=== PATIENT | female | born 1945 | race Caucasian/White ===

== ENCOUNTER 2017-06-16 14:39 | Emergency (ER) | payer MEDICARE ==
[~2017-06-16] VITALS: Ht 160 cm; Wt 68.0 kg
[2017-06-16] MEDS ORDERED: ATORVASTATIN CALCIUM 20 MG TAB PO (14:54)
[2017-06-16] MEDS ORDERED: HYDROCHLOROTHIAZIDE 12.5 MG PO (14:54)
--- NOTE | 2017-06-16 15:04 | NUR ---
Patient discharged to home in stable conditon. Written and verbal after care instructions given. Patient verbalizes understanding of instructions.
== END 2017-06-16 15:05 | disposition home or self-care (01) ==
LOC: ER 14:50
DX: T16.1XXA Foreign body in right ear, initial encounter (principal); I10 Essential (primary) hypertension; E78.5 Hyperlipidemia, unspecified; Z90.710 Acquired absence of both cervix and uterus; Z88.8 Allergy status to other drugs, medicaments and biological substances; Z79.899 Other long term (current) drug therapy; X58.XXXA Exposure to other specified factors, initial encounter; Y93.89 Activity, other specified; Y92.89 Other specified places as the place of occurrence of the external cause; Y99.8 Other external cause status
CPT/HCPCS: A4663